=== PATIENT | female | born 1945 | race Caucasian/White ===

== ENCOUNTER 2017-02-19 17:59 | Emergency (ER) | payer OTHER ==
[~2017-02-19] VITALS: Ht 165.1 cm; Wt 69.4 kg
[2017-02-19 20:50] VITALS: BP 145/90
== END 2017-02-19 21:01 | disposition home or self-care (01) ==
LOC: ER 18:01
DX: M25.521 Pain in right elbow (principal); R07.9 Chest pain, unspecified; Z88.0 Allergy status to penicillin; V49.9XXA Car occupant (driver) (passenger) injured in unspecified traffic accident, initial encounter; Y93.89 Activity, other specified; Y99.8 Other external cause status; Y92.89 Other specified places as the place of occurrence of the external cause
CPT/HCPCS: 71010; 73080; 93005